=== PATIENT | male | born 1965 | race Caucasian/White ===

== ENCOUNTER 2017-11-29 20:25 | Emergency (ER) | payer OTHER ==
[2017-11-29] MEDS ORDERED: Albuterol/Ipratropium 3.0-0.5 MG/3 ML Neb Soln NEB ONE (20:42)
--- NOTE | 2017-11-29 20:47 | EDM.PDOC ---
ED HPI GENERAL MEDICAL PROBLEM - General Chief Complaint: Respiratory Problem Stated Complaint: COLD,COUGH Time Seen by Provider: 11/29/17 20:38 Source of Information: Reports: Patient History Limitations: Reports: No Limitations - History of Present Illness INITIAL COMMENTS - FREE TEXT/NARRATIVE: HISTORY AND PHYSICAL: History of present illness: Patient is a 52-year-old male who presents to the emergency room today with complaints of cough 5 days. He does have a history of COPD, emphysema and pneumonia. Does use Advair Diskus inhaler along with a rescue inhaler as needed. States he was exposed to his grandson who recently had a pneumonia. Current daily smoker, 20 year history. He denies any fever, chills, chest pain, abdominal pain, nausea, vomiting, diarrhea or constipation. Review of systems: As per history of present illness and below otherwise all systems reviewed and negative. Past medical history: As per history of present illness and as reviewed below otherwise noncontributory. Surgical history: As per history of present illness and as reviewed below otherwise noncontributory. Social history: No reported history of drug or alcohol abuse. Family history: As per history of present illness and as reviewed below otherwise noncontributory. Physical exam: General: Well-developed and well-nourished 52-year-old male. Alert and oriented. Nontoxic appearing and in no acute distress. HEENT: Atraumatic, normocephalic, pupils equal and reactive bilaterally, negative for conjunctival pallor or scleral icterus, mucous membranes moist, throat clear, neck supple, nontender, trachea midline. No drooling or trismus noted. No meningeal signs Lungs: Fine expiratory wheezing noted to the left posterior base, diminshed lung sounds to right lower lobe, chest nontender. Heart: S1S2, regular rate and rhythm without overt murmur Abdomen: Soft, nondistended, nontender. Negative for masses or hepatosplenomegaly. Negative for costovertebral tenderness. Pelvis: Stable nontender. Genitourinary: Deferred. Rectal: Deferred. Skin: Intact, warm, dry. No lesions or rashes noted. Extremities: Atraumatic, negative for cords or calf pain. Neurovascular unremarkable. Neuro: Awake, alert, oriented. Cranial nerves II through XII unremarkable. Cerebellum unremarkable. Motor and sensory unremarkable throughout. Exam nonfocal. Notes: Patient declines lab work at this time but is agreeable to a 2 view chest x-ray. VSS. Medrol Dosepak and Z-Jj prescribed. Diagnostics: Chest x-ray Therapeutics: DuoNeb, Solu-Medrol and Zithromax Impression: Bronchitis Plan: 1. Please take your antibiotic as directed. Steroid dosing pack has been prescribed as well, please take as directed. 2. As we discussed if you have symptoms such as but not limited to fever, chills , sweats, increased difficulty breathing, chest pain or symptoms please return to the emergency room. Follow-up with your primary care provider in the next 1- 2 days. Return to the ED as needed and as discussed. Definitive disposition and diagnosis as appropriate pending reevaluation and review of above. Duration: Day(s): Location: Reports: Chest - Related Data Allergies Allergy/AdvReac Type Severity Reaction Status Date / Time No Known Allergies Allergy Verified 11/29/17 20:34 Home Meds: Home Meds Escitalopram Oxalate [Lexapro] 20 mg PO DAILY 11/29/17 [History] Past Medical History HEENT History: Reports: None Cardiovascular History: Reports: None Respiratory History: Reports: COPD, Pneumonia, Recurrent, Other (See Below) Other Respiratory History: emphysema, collapsed left lower lobe Gastrointestinal History: Reports: None Genitourinary History: Reports: None Musculoskeletal History: Reports: None Neurological History: Reports: None Psychiatric History: Reports: Anxiety Endocrine/Metabolic History: Reports: None Hematologic History: Reports: None Immunologic History: Reports: None Oncologic (Cancer) History: Reports: None Dermatologic History: Reports: None - Past Surgical History Head Surgeries/Procedures: Reports: None HEENT Surgical History: Reports: None Cardiovascular Surgical History: Reports: None Respiratory Surgical History: Reports: None GI Surgical History: Reports: None Male Surgical History: Reports: None Endocrine Surgical History: Reports: None Neurological Surgical History: Reports: None Musculoskeletal Surgical History: Reports: None Oncologic Surgical History: Reports: None Dermatological Surgical History: Reports: None Social & Family History - Family History Family Medical History: Noncontributory - Tobacco Use Smoking Status *Q: Current Every Day Smoker Years of Tobacco use: 20 Packs/Tins Daily: 0.5 - Caffeine Use Caffeine Use: Reports: Coffee - Recreational Drug Use Recreational Drug Use: No ED ROS GENERAL - Review of Systems Review Of Systems: ROS reveals no pertinent complaints other than HPI. ED EXAM, GENERAL - Physical Exam Exam: See Below (See dictation) Course - Vital Signs Last Recorded V/S: Last Vital Signs Temp 97.1 F 11/29/17 20:34 Pulse 79 11/29/17 20:34 Resp 18 11/29/17 20:34 BP 131/83 11/29/17 20:34 Pulse Ox 91 L 11/29/17 20:34 - Orders/Labs/Meds Orders: Active Orders 24 hr Category Date Time Status RT Aerosol Therapy [RC] ASDIRECTED Care 11/29/17 20:42 Active Chest 2V [CR] Stat Exams 11/29/17 20:42 Taken Meds: Medications Discontinued Medications Generic Name Dose Route Start Last Admin Trade Name Negar PRN Reason Stop Dose Admin Albuterol/Ipratropium 3 ml 11/29/17 20:42 11/29/17 20:49 Duoneb 3.0-0.5 Mg/3 Ml NEB 11/29/17 20:43 3 ml ONETIME ONE Administration Azithromycin 500 mg 11/29/17 21:47 Zithromax PO 11/29/17 21:48 NOW STA Methylprednisolone Sodium Succinate 125 mg 11/29/17 21:45 Solu-Medrol IVPUSH 11/29/17 21:46 ONETIME ONE Methylprednisolone Sodium Succinate 125 mg 11/29/17 21:52 Solu-Medrol IM 11/29/17 21:53 ONETIME ONE Departure - Departure Time of Disposition: 21:54 Disposition: Home, Self-Care 01 Clinical Impression: Bronchitis - Discharge Information Referrals: PCP,None [Primary Care Provider] - Forms: ED Department Discharge Additional Instructions: The following information is given to patients seen in the emergency department who are being discharged to home. This information is to outline your options for follow-up care. We provide all patients seen in our emergency department with a follow-up referral. The need for follow-up, as well as the timing and circumstances, are variable depending upon the specifics of your emergency department visit. If you don't have a primary care physician on staff, we will provide you with a referral. We always advise you to contact your personal physician following an emergency department visit to inform them of the circumstance of the visit and for follow-up with them and/or the need for any referrals to a consulting specialist. The emergency department will also refer you to a specialist when appropriate. This referral assures that you have the opportunity for follow-up care with a specialist. All of these measure are taken in an effort to provide you with optimal care, which includes your follow-up. Under all circumstances we always encourage you to contact your private physician who remains a resource for coordinating your care. When calling for follow-up care, please make the office aware that this follow-up is from your recent emergency room visit. If for any reason you are refused follow-up, please contact the [facility] Emergency Department at and asked to speak to the emergency department charge nurse. [facility] [address] [place] [id number] 1. Please take your antibiotic as directed. Steroid dosing pack has been prescribed as well, please take as directed. 2. As we discussed if you have symptoms such as but not limited to fever, chills , sweats, increased difficulty breathing, chest pain or symptoms please return to the emergency room. Follow-up with your primary care provider in the next 1- 2 days. Return to the ED as needed and as discussed. - My Orders Last 24 Hours: My Active Orders 11/29/17 20:42 RT Aerosol Therapy [RC] ASDIRECTED Chest 2V [CR] Stat - Assessment/Plan Last 24 Hours: My Active Orders 11/29/17 20:42 RT Aerosol Therapy [RC] ASDIRECTED Chest 2V [CR] Stat
[2017-11-29] MEDS ORDERED: methylPREDNISolone Sodium Succinate 125 MG/2 ML SDV IVPUSH ONE (21:45)
[2017-11-29] MEDS ORDERED: Azithromycin 250 MG Tab PO STA (21:47)
[2017-11-29] MEDS ORDERED: methylPREDNISolone Sodium Succinate 125 MG/2 ML SDV IM ONE (21:52)
--- NOTE | 2017-12-01 10:03 | CR ---
EXAM DATE: 11/29/17 PATIENT'S AGE: 52 Patient: AUDRA ARRINGTON Facility: [place], [place] Site . Site : 1965 Study: XRay Chest [id number] 9:41:30 PM Ordering Physician: Doctor Delarosa Final Report: INDICATION: Pain, shortness of breath TECHNIQUE: Chest 2 views. COMPARISON: None FINDINGS: Normal cardiomediastinal silhouette. Emphysema with bullous changes in the upper lobes, left greater than right. No pneumothorax. Questionable nodular infiltrate in the right lung. Blunting of the left costophrenic angle. No acute osseous abnormality. IMPRESSION: Questionable nodular infiltrate throughout the right lung. This could represent infection. Consider chest CT for further evaluation if clinically indicated. Emphysema with bullous changes in the upper lobes. Small left pleural effusion versus pleural thickening. Dictated by Nan Gutierrez MD @ Nov 29 2017 10:07PM (Electronic Signature) Report Signed by Proxy. ASHKAN
== END 2017-11-29 22:23 | disposition home or self-care (01) ==
LOC: MW.ED 20:25
DX: J40 Bronchitis, not specified as acute or chronic (principal); F17.210 Nicotine dependence, cigarettes, uncomplicated; Z87.01 Personal history of pneumonia (recurrent); Z79.899 Other long term (current) drug therapy
CPT/HCPCS: 71046; 94640; 99285; A9270; J2930; 99283

== ENCOUNTER 2018-12-12 17:11 | Emergency (ER) | payer OTHER ==
--- NOTE | 2018-12-12 17:40 | EDM.PDOC ---
ED HPI GENERAL MEDICAL PROBLEM - General Chief Complaint: Upper Extremity Injury/Pain Stated Complaint: ELBOW INJURY Time Seen by Provider: 12/12/18 17:29 Source of Information: Reports: Patient History Limitations: Reports: No Limitations - History of Present Illness INITIAL COMMENTS - FREE TEXT/NARRATIVE: HISTORY AND PHYSICAL: History of present illness: Patient is a 53-year-old male who presents to the emergency room today with complaints of left elbow soft tissue swelling. He states he noticed swelling to the left elbow but fluctuates over the past 2-3 weeks. He denies any injury, trauma or falls. States that it is not painful although he "notices it" and is bothersome. Denies any numbness, tingling or weakness of the affected extremity. Review of systems: As per history of present illness and below otherwise all systems reviewed and negative. Past medical history: As per history of present illness and as reviewed below otherwise noncontributory. Surgical history: As per history of present illness and as reviewed below otherwise noncontributory. Social history: See social history for further information Family history: As per history of present illness and as reviewed below otherwise noncontributory. Physical exam: General: Well-developed and well-nourished 53-year-old male. Alert and oriented. Nontoxic appearing and in no acute distress. HEENT: Atraumatic, normocephalic, pupils equal and reactive bilaterally, negative for conjunctival pallor or scleral icterus, mucous membranes moist, TMs normal bilaterally, throat clear, neck supple, nontender, trachea midline. No drooling or trismus noted. No meningeal signs. No hot potato voice noted. Lungs: Clear to auscultation, breath sounds equal bilaterally, chest nontender. Heart: S1S2, regular rate and rhythm without overt murmur Abdomen: Soft, nondistended, nontender. Skin: Intact, warm, dry. No lesions or rashes noted. Extremities: Atraumatic, moves all extremities per self without difficulty or deficits, negative for cords or calf pain. Neurovascular unremarkable. Neuro: Awake, alert, oriented. Cranial nerves II through XII unremarkable. Cerebellum unremarkable. Motor and sensory unremarkable throughout. Exam nonfocal. Notes: Supportive care measures were reviewed and discussed. Voices understanding and is agreeable to plan of care. Denies any further questions or concerns at this time. Diagnostics: Elbow X-ray Therapeutics: Sling Prescription: Diclofenac Impression: Olecranon Bursitis, left Plan: 1. Rest, ice, elevate the extremity is able 2. Use the diclofenac as prescribed. This is an NSAID, so do not take with Ibuprofen or Aleve. You may take Tylenol for breakthrough pain. 3. Follow-up with the orthopedic provider as we discussed. Return to the ED as needed and as discussed. Definitive disposition and diagnosis as appropriate pending reevaluation and review of above. - Related Data Allergies Allergy/AdvReac Type Severity Reaction Status Date / Time No Known Allergies Allergy Verified 12/12/18 17:21 Home Meds: Home Meds Escitalopram Oxalate [Lexapro] 20 mg PO DAILY 11/29/17 [History] Diclofenac Sodium [Voltaren] 75 mg PO BIDMEALS PRN #30 tab.cr 12/12/18 [Rx] Past Medical History HEENT History: Reports: None Cardiovascular History: Reports: None Respiratory History: Reports: COPD, Pneumonia, Recurrent, Other (See Below) Other Respiratory History: emphysema, collapsed left lower lobe Gastrointestinal History: Reports: None Genitourinary History: Reports: None Musculoskeletal History: Reports: None Neurological History: Reports: None Psychiatric History: Reports: Anxiety, Depression Endocrine/Metabolic History: Reports: None Hematologic History: Reports: None Immunologic History: Reports: None Oncologic (Cancer) History: Reports: None Dermatologic History: Reports: None - Infectious Disease History Infectious Disease History: Reports: Chicken Pox, Measles, Mumps - Past Surgical History Head Surgeries/Procedures: Reports: None HEENT Surgical History: Reports: None Cardiovascular Surgical History: Reports: None Respiratory Surgical History: Reports: None GI Surgical History: Reports: None Male Surgical History: Reports: None Endocrine Surgical History: Reports: None Neurological Surgical History: Reports: None Musculoskeletal Surgical History: Reports: None Oncologic Surgical History: Reports: None Dermatological Surgical History: Reports: None Social & Family History - Family History Family Medical History: Noncontributory - Tobacco Use Smoking Status *Q: Current Every Day Smoker Years of Tobacco use: 15 Packs/Tins Daily: 1 - Caffeine Use Caffeine Use: Reports: Coffee - Recreational Drug Use Recreational Drug Use: No Review of Systems - Review of Systems Review Of Systems: ROS reveals no pertinent complaints other than HPI. ED EXAM, GENERAL - Physical Exam Exam: See Below (See dictation) Course - Vital Signs Last Recorded V/S: Last Vital Signs Temp 97.5 F 12/12/18 17:19 Pulse 76 12/12/18 17:19 Resp 18 12/12/18 17:19 BP 128/83 12/12/18 17:19 Pulse Ox 97 12/12/18 17:19 Departure - Departure Time of Disposition: 18:03 Disposition: Home, Self-Care 01 Clinical Impression: Bursitis of elbow Qualifiers: Elbow bursitis location: olecranon bursitis Laterality: left Qualified Code(s) : M70.22 - Olecranon bursitis, left elbow - Discharge Information Prescriptions: Diclofenac Sodium [Voltaren] 75 mg PO BIDMEALS PRN #30 tab.cr PRN Reason: Pain Instructions: Bursitis, [id number] Referrals: PCP,Unknown [Primary Care Provider] - Forms: ED Department Discharge Additional Instructions: The following information is given to patients seen in the emergency department who are being discharged to home. This information is to outline your options for follow-up care. We provide all patients seen in our emergency department with a follow-up referral. The need for follow-up, as well as the timing and circumstances, are variable depending upon the specifics of your emergency department visit. If you don't have a primary care physician on staff, we will provide you with a referral. We always advise you to contact your personal physician following an emergency department visit to inform them of the circumstance of the visit and for follow-up with them and/or the need for any referrals to a consulting specialist. The emergency department will also refer you to a specialist when appropriate. This referral assures that you have the opportunity for follow-up care with a specialist. All of these measure are taken in an effort to provide you with optimal care, which includes your follow-up. Under all circumstances we always encourage you to contact your private physician who remains a resource for coordinating your care. When calling for follow-up care, please make the office aware that this follow-up is from your recent emergency room visit. If for any reason you are refused follow-up, please contact the [facility] Emergency Department at and asked to speak to the emergency department charge nurse. [facility] [address] [place] [id number] [address] [address] [facility] Professional [facility] [address], [address] [place] [address] 1. Rest, ice, elevate the extremity as able 2. Use the diclofenac as prescribed. This is an NSAID, so do not take with Ibuprofen or Aleve. You may take Tylenol for breakthrough pain. 3. Follow-up with the orthopedic provider as we discussed. Return to the ED as needed and as discussed.
--- NOTE | 2018-12-12 18:00 | CR ---
INDICATION : Swelling. TECHNIQUE : Three views of the left elbow. COMPARISON : None. FINDINGS : Soft tissue swelling over the olecranon, consistent with bursitis. No fracture, abnormal fat pad with joint space narrowing. IMPRESSION : Olecranon bursitis. Dictated by Mitul Franks MD @ Dec 12 2018 5:57PM Signed by Dr. Mitul Franks @ Dec 12 2018 5:58PM
== END 2018-12-12 18:30 | disposition home or self-care (01) ==
LOC: MW.ED 17:11
DX: M70.22 Olecranon bursitis, left elbow (principal); F41.9 Anxiety disorder, unspecified; F32.9 Major depressive disorder, single episode, unspecified; F17.210 Nicotine dependence, cigarettes, uncomplicated; Z79.899 Other long term (current) drug therapy
CPT/HCPCS: 73080-26-LT; 73080-LT; 99283-25